=== PATIENT | female | born 1960 | race Caucasian/White ===

== ENCOUNTER 2016-12-22 14:25 | Emergency (ER) | payer SELFPAY ==
[2016-12-22 14:39] VITALS: BP 146/90
--- NOTE | 2016-12-22 15:04 | UC ---
Abdominal Pain Female HPI - HPI Summary HPI Summary: Woke at 3:30am 12/20/16 with nausea, vomiting, and diarrhea. Since then has had constant nausea, vomiting 4-5 times per day, and diarrhea 5-7 times per day. No blood in vomit or stool, no shaking chills. Does not have thermometer at home but has been sweaty and cold. Also is coughing and feeling tightness in her chest since symptoms started. Does not have an inhaler but has used them in the past. Has ulcerative colitis but is not under treatment at this time. - History of Current Complaint Chief Complaint: UCRespiratory Stated Complaint: COUGH,VOMITING,DIARRHEA,HEADACHE,FEVER Time Seen by Provider: 12/22/16 14:45 Hx Obtained From: Patient ?: No Onset/Duration: Gradual Onset, Lasting Days Timing: Constant Severity Initially: Moderate Severity Currently: Moderate Location: Diffuse Radiates: No Character: Aching, Other - nausea Aggravating Factor(s): Food, Deep Breaths Alleviating Factor(s): Position Associated Signs and Symptoms: Positive: Cough, Decreased Appetite, Nausea, Vomiting, Diarrhea. Negative: Blood in Stool, Urinary Symptoms, Vaginal Bleeding Allergies/Adverse Reactions: Allergies Allergy/AdvReac Type Severity Reaction Status Date / Time Clarithromycin [From Biaxin] Allergy Anaphylatic Verified 12/22/16 14:39 Shock PMH/Surg Hx/FS Hx/Imm Hx Other GI/ History: UC - Surgical History Surgical History: None - Family History Known Family History: Positive: Hypertension - Social History Occupation: Employed Full-time Alcohol Use: Occasionally Substance Use Type: None Smoking Status (MU): Current Every Day Smoker Amount Used/How Often: 1.5 ppd Cessation Counseling: Patient Advised to Stop Review of Systems Constitutional: Negative Skin: Negative Eyes: Negative ENT: Negative Respiratory: Cough Cardiovascular: Negative Gastrointestinal: Vomiting, Diarrhea, Nausea Genitourinary: Negative Motor: Negative Neurovascular: Negative Musculoskeletal: Negative Neurological: Negative Psychological: Negative All Other Systems Reviewed And Are Negative: Yes Physical Exam Triage Information Reviewed: Yes Appearance: No Pain Distress, Well-Nourished Vital Signs: Initial Vital Signs Temp 98.7 F 12/22/16 14:33 Pulse 104 12/22/16 14:33 Resp 20 12/22/16 14:33 BP 146/90 12/22/16 14:33 Pulse Ox 98 12/22/16 14:33 Vital Signs Reviewed: Yes Eye Exam: Normal, Other - PERRL Eyes: Positive: Conjunctiva Clear ENT: Positive: Hearing grossly normal, Pharynx normal, TMs normal, Other: - MM somewhat sticky. Negative: Tonsillar swelling, Tonsillar exudate Dental Exam: Other - dentures Neck exam: Normal Neck: Positive: Supple, Nontender, No Lymphadenopathy Respiratory: Positive: No respiratory distress, No accessory muscle use, Wheezing, Expiration - mild Cardiovascular: Positive: No Murmur, Tachycardia Musculoskeletal Exam: Normal Musculoskeletal: Positive: Strength Intact Neurological: Positive: Alert Psychological Exam: Normal Skin Exam: Normal Abd Pain Female Course/Dx - Course Course Of Treatment: Offered IV hydration and nausea medication, pt is very unwilling to have anything to do with needles. Discussed oral rehydration with pt, she agrees and will return or go to ED if vomiting is not markedly improved within a day or if she shows any signs of worsening. - Differential Dx/Diagnosis Differential Diagnosis: Diverticulitis, Irritable Bowel Syndrome, Pancreatitis, Other - flare of ulcerative colitis Provider Diagnoses: Acute gastroenteritis. dehydration. bronchospasm secondary to vomiting Discharge - Discharge Plan Condition: Stable Disposition: HOME Prescriptions: Albuterol HFA INHALER* [Ventolin HFA Inhaler*] 1 - 2 puff INH Q4H PRN #1 mdi PRN Reason: wheeze, cough Ondansetron HCl [Zofran 4 MG TAB] 4 mg PO Q4H PRN #15 tab PRN Reason: nausea Patient Education Materials: Gastroenteritis (ED) Forms: *Work Release Referrals: Bella Calzada MD [Primary Care Provider] - 7 Days Additional Instructions: Your nausea and vomiting should improve within the next day or so; it may take another few days before your bowels normalize. I believe your coughing is directly the result of vomiting. If you have fever, blood in bowel or vomit, fainting, or worsening in any other way, please go to the emergency department.
== END 2016-12-22 15:04 | disposition home or self-care (01) ==
LOC: UCCORT 14:25
DX: K52.9 Noninfective gastroenteritis and colitis, unspecified (principal); E86.0 Dehydration; J98.01 Acute bronchospasm; F17.210 Nicotine dependence, cigarettes, uncomplicated
CPT/HCPCS: 99202; G0463